=== PATIENT | male | born 1985 | race Caucasian/White ===

== ENCOUNTER 2016-04-17 10:08 | Emergency (ER) | payer OTHER ==
[~2016-04-17] VITALS: Ht 162.6 cm; Wt 60.0 kg
[2016-04-17 10:21] VITALS: BP 136/90; PULSE 86; RESP 16; TEMP 98.2; O2SAT 100
--- NOTE | 2016-04-17 11:23 | PD ---
HPI Chief Complaint: Suicide Ideation/Attempt Time Seen by Provider: 11:23 Travel History International Travel<30 days: No Contact w/Intl Traveler<30days: No Traveled to known affect area: No History of Present Illness HPI 31-year-old male presents to the emergency Department under Zhao act by local police. According to Zhao act, the patient sent a text message to a family member stating he wanted to kill himself. However, the patient denies this. He states somebody hacked his Facebook account and sent the message. He denies any suicidal or homicidal ideation. He denies any previous attempt to hurt himself or any previous Zhao act. He states he drinks 2 beers daily. He also he smokes tobacco. However, he denies any illicit drug use. He has no chronic medical problems and takes no prescribed medications. Patient denies any medical complaints. [facility] Past Medical History Medical History: Denies Significant Hx ?: Not Past Surgical History Surgical History: No Previous Surgery Social History Alcohol Use: Yes (2-3 beers nightly) Tobacco Use: Yes (chewing tobacco) Substance Use: No Allergies-Medications (Allergen,Severity, Reaction): Coded Allergies: No Known Allergies (Unverified , 04/17/16) Reported Meds & Prescriptions Reported Meds & Active Scripts Active No Active Prescriptions or Reported Medications Review of Systems Except as stated in HPI: all other systems reviewed are Neg Physical Exam Narrative GENERAL: Well-developed well-nourished male patient, afebrile. SKIN: Warm and dry. HEAD: Normocephalic. Atraumatic. EYES: No scleral icterus. No injection or drainage. NECK: Supple, trachea midline. No JVD or lymphadenopathy. CARDIOVASCULAR: Regular rate and rhythm without murmurs, gallops, or rubs. RESPIRATORY: Breath sounds equal bilaterally. No accessory muscle use. Lungs sounds are clear to auscultation. GASTROINTESTINAL: Abdomen soft, non-tender, nondistended. MUSCULOSKELETAL: No cyanosis, or edema. BACK: Nontender without obvious deformity. No CVA tenderness. PSYCHIATRIC: No delusional thought processes. No hallucinations. Data Data Last Documented VS Vital Signs Date Time Temp Pulse Resp B/P Pulse Ox O2 Delivery O2 Flow Rate FiO2 04/17/16 10:21 98.2 86 16 136/90 100 Room Air Orders Complete Blood Count With Diff (04/17/16 11:22) Comprehensive Metabolic Panel (04/17/16 11:22) Psych Screen (04/17/16 11:22) Drug Screen, Random Urine (04/17/16 11:22) Alcohol (Ethanol) (04/17/16 11:22) Labs Laboratory Tests Test 04/17/16 11:27 White Blood Count 6.4 TH/MM3 Red Blood Count 5.22 MIL/MM3 Hemoglobin 16.5 GM/DL Hematocrit 48.0 % Mean Corpuscular Volume 91.9 FL Mean Corpuscular Hemoglobin 31.7 PG Mean Corpuscular Hemoglobin 34.5 % Concent Red Cell Distribution Width 13.2 % Platelet Count 226 TH/MM3 Mean Platelet Volume 7.3 FL Neutrophils (%) (Auto) 46.3 % Lymphocytes (%) (Auto) 34.2 % Monocytes (%) (Auto) 10.8 % Eosinophils (%) (Auto) 7.3 % Basophils (%) (Auto) 1.4 % Neutrophils # (Auto) 3.0 TH/MM3 Lymphocytes # (Auto) 2.2 TH/MM3 Monocytes # (Auto) 0.7 TH/MM3 Eosinophils # (Auto) 0.5 TH/MM3 Basophils # (Auto) 0.1 TH/MM3 CBC Comment DIFF FINAL Differential Comment Sodium Level 141 MEQ/L Potassium Level 3.6 MEQ/L Chloride Level 103 MEQ/L Carbon Dioxide Level 27.7 MEQ/L Anion Gap 10 MEQ/L Blood Urea Nitrogen 8 MG/DL Creatinine 0.96 MG/DL Estimat Glomerular Filtration 91 ML/MIN Rate Random Glucose 79 MG/DL Calcium Level 8.9 MG/DL Total Bilirubin 0.9 MG/DL Aspartate Amino Transf 66 U/L (AST/SGOT) Alanine Aminotransferase 61 U/L (ALT/SGPT) Alkaline Phosphatase 44 U/L Total Protein 8.0 GM/DL Albumin 4.4 GM/DL Urine Opiates Screen NEG Urine Barbiturates Screen NEG Urine Amphetamines Screen NEG Urine Benzodiazepines Screen NEG Urine Cocaine Screen NEG Urine Cannabinoids Screen NEG Ethyl Alcohol Level 134 MG/DL MDM Medical Decision Making Medical Screen Exam Complete: Yes Emergency Medical Condition: Yes Medical Record Reviewed: Yes Differential Diagnosis Medical clearance versus anxiety versus depression versus bipolar disorder Narrative Course 31-year-old male presents to the emergency Department under Zhao act by local police after the Zhao act states that he sent a text message reporting that he wanted to kill himself. The patient denies doing this and states that somebody hacked his account. He denies any complaints at this time. CBC, CMP, alcohol level, urine drug screen are ordered and pending. CBC shows no acute abnormality. CMP shows slightly elevated AST of 66. Alcohol level is 134. UDS is negative. Patient is medically cleared for psychiatric screening and disposition. Mental health screening discussed with the patient. Psychiatric screen ordered. Diagnosis Primary Impression: Depression Qualified Code: F32.9 - Depression, unspecified depression type Additional Instructions: Patient is medically cleared for psychiatric screening and disposition. Scripts No Active Prescriptions or Reported Meds Condition: Shauna Larson Apr 17, 2016 11:23
[2016-04-17 11:53] LABS: BASOPHIL # 0.1 TH/MM3 (0-0.2); BASOPHIL % 1.4 % (0.0-2.0); EOSINOPHIL # 0.5 TH/MM3 (0-0.4); EOSINOPHIL % 7.3 % (0.0-4.0); HEMO FLAGS DIFF FINAL; LYMPH % 34.2 % (9.0-44.0); LYMPHOCYTE # 2.2 TH/MM3 (1.0-4.8); MEAN CELL VOLUME 91.9 FL (80.0-100.0); MEAN CORPUSCULAR HEMOGLOBIN 31.7 PG (27.0-34.0); MEAN CORPUSCULAR HGB CONC 34.5 % (32.0-36.0); MONO % 10.8 % (0.0-8.0); NEUT % 46.3 % (16.0-70.0); PLATELET COUNT 226 TH/MM3 (150-450); RED BLOOD COUNT 5.22 MIL/MM3 (4.50-5.90); RED CELL DISTRIBUTION WIDTH 13.2 % (11.6-17.2); WHITE BLOOD COUNT 6.4 TH/MM3 (4.0-11.0)
[2016-04-17 12:00] LABS: AMPHETAMINE, URINE NEG (NEG); BARBITURATES, URINE NEG (NEG); COCAINE, URINE NEG (NEG)
[2016-04-17 12:12] LABS: ANION GAP 10 MEQ/L (5-15); AST (GOT) 66 U/L (15-37); BICARBONATE 27.7 MEQ/L (21.0-32.0); BLOOD UREA NITROGEN 8 MG/DL (7-18); CHLORIDE 103 MEQ/L (98-107); GLOMERULAR FILTRATION RATE 91 ML/MIN (>89); POTASSIUM 3.6 MEQ/L (3.5-5.1); SODIUM (NA) 141 MEQ/L (136-145)
[2016-04-17 12:15] LABS: ALKALINE PHOSPHATASE 44 U/L (45-117); ALT (GPT) 61 U/L (12-78); TOTAL BILIRUBIN ADULT 0.9 MG/DL (0.2-1.0)
[2016-04-17 13:34] VITALS: BP 114/75; PULSE 72; RESP 18; TEMP 98.6; O2SAT 96
[2016-04-17 16:31] VITALS: BP 114/75; PULSE 72; RESP 18; O2SAT 96
--- NOTE | 2016-04-17 17:00 | PD ---
History of Present Illness Chief Complaint: Suicide Ideation/Attempt Time Seen by Provider: 16:45 Travel History International Travel<30 Days: No Contact w/Intl Traveler<30days: No Known affected area: No Legal Status Legal Status: Zhao Act Zhao Act Signed By: Viond Zhao Act Comment: BA signed by MANDY LITTLE Badge #[id number], Case#[id number] History of Present Illness: 31 yo male with hx of making suicidal threats while intox. Now sober and denies SI, HI, and psychoses. Denies signif depression or other sx of mental illness. Calm and cooperative and pleasant. Cognition is intact. Verbally contracts for sagety. PFSH Past Medical History Medical History: Denies Significant Hx ?: Not Past Surgical History Surgical History: No Previous Surgery Psychiatric History Psychiatric History Hx Psychiatric Treatment: Denies Social History Hx Alcohol Use: Yes (2-3 beers nightly) Hx Tobacco Use: Yes (chewing tobacco) Hx Substance Use: Yes (Drinks daily) Substance Use Type: Alcohol Hx of Substance Use Treatment: No Allergies-Medications (Allergen,Severity, Reaction): Coded Allergies: No Known Allergies (Unverified , 04/17/16) Reported Meds & Prescriptions Reported Meds & Active Scripts Active No Active Prescriptions or Reported Medications Review of Systems ROS Limitations: Clinical Condition Except as stated in HPI: all other systems reviewed are Neg Exam Alert: Yes [place]: Person, Place, Date, Situation Mood: Calm Affect: Euthymic Speech: Clear, Logical Eye Contact: Normal Memory Intact: Immediate, Recent, Remote Hallucinations: Other Delusions: No Delusion Type: Other Insight/Judgement mildly impaired but adequate MDM Medical Decision Making Medical Record Reviewed: Yes Assessment/Plan BA lifted and pt. to go home with his grandmother. Father is suppiort system. counseling recommended. Orders Complete Blood Count With Diff (04/17/16 11:22) Comprehensive Metabolic Panel (04/17/16 11:22) Psych Screen (04/17/16 11:22) Drug Screen, Random Urine (04/17/16 11:22) Alcohol (Ethanol) (04/17/16 11:22) Diet Regular Basic (04/17/16 Dinner) Results Vital Signs Date Time Temp Pulse Resp B/P Pulse Ox O2 Delivery O2 Flow Rate FiO2 04/17/16 16:31 72 18 114/75 96 Room Air 04/17/16 13:34 98.6 72 18 114/75 96 Room Air 04/17/16 10:21 98.2 86 16 136/90 100 Room Air Laboratory Tests Test 04/17/16 11:27 White Blood Count 6.4 Red Blood Count 5.22 Hemoglobin 16.5 Hematocrit 48.0 Mean Corpuscular Volume 91.9 Mean Corpuscular Hemoglobin 31.7 Mean Corpuscular Hemoglobin 34.5 Concent Red Cell Distribution Width 13.2 Platelet Count 226 Mean Platelet Volume 7.3 Neutrophils (%) (Auto) 46.3 Lymphocytes (%) (Auto) 34.2 Monocytes (%) (Auto) 10.8 Eosinophils (%) (Auto) 7.3 Basophils (%) (Auto) 1.4 Neutrophils # (Auto) 3.0 Lymphocytes # (Auto) 2.2 Monocytes # (Auto) 0.7 Eosinophils # (Auto) 0.5 Basophils # (Auto) 0.1 CBC Comment DIFF FINAL Differential Comment Sodium Level 141 Potassium Level 3.6 Chloride Level 103 Carbon Dioxide Level 27.7 Anion Gap 10 Blood Urea Nitrogen 8 Creatinine 0.96 Estimat Glomerular Filtration 91 Rate Random Glucose 79 Calcium Level 8.9 Total Bilirubin 0.9 Aspartate Amino Transf 66 (AST/SGOT) Alanine Aminotransferase 61 (ALT/SGPT) Alkaline Phosphatase 44 Total Protein 8.0 Albumin 4.4 Urine Opiates Screen NEG Urine Barbiturates Screen NEG Urine Amphetamines Screen NEG Urine Benzodiazepines Screen NEG Urine Cocaine Screen NEG Urine Cannabinoids Screen NEG Ethyl Alcohol Level 134 Diagnosis Primary Impression: Depression Additional Impression: Adjustment disorder with mixed disturbance of emotions and conduct Additional Instructions: Patient is medically cleared for psychiatric screening and disposition. Prescriptions No Active Prescriptions or Reported Meds Condition: Stable Problem Qualifiers Primary Impression: Depression Qualified Code: F32.9 - Depression, unspecified depression type Arnulfo Molina MD Apr 17, 2016 17:00
== END 2016-04-17 18:50 | disposition home or self-care (01) ==
LOC: NEPA 10:08 → NEPJ 18:50
DX: F32.9 Major depressive disorder, single episode, unspecified (principal)
CPT/HCPCS: 80053; 80307; 80320; 85025; 99284